=== PATIENT | male | born 1975 | race Caucasian/White ===

== ENCOUNTER 2019-10-06 06:12 | Emergency (ER) | payer BC ==
--- NOTE | 2019-10-06 07:44 | EDM.PDOC ---
ED HPI GENERAL MEDICAL PROBLEM - General Chief Complaint: Lower Extremity Injury/Pain Stated Complaint: RIGHT KNEE PAIN Time Seen by Provider: 10/06/19 07:05 - History of Present Illness INITIAL COMMENTS - FREE TEXT/NARRATIVE: HPI 43-year-old obese male presents with 2 weeks of gradually progressive right anterior knee pain that begins immediately proximal to his patella and radiates/ tracks along the length of his patella inferiorly to the knee, notes that he began treadmill exercise 2 weeks ago an effort to improve his weight, denies trauma, fevers, chills, notes brief periods of warmth/redness that is responsive to ice. No history of gout. No history of repetitive kneeling. No recent travel or exposure to areas where Lyme disease is endemic, no new sexual partners, no genital complaints. ROS with no recent constitutional symptoms. Triage note: AOx4, states pain to right knee since , denies any trauma. Advil - 3am Exam HR 92, RR 18, BP 139/89, T 36.4C, SaO2 97% on room air. Gen: Pleasant, nontoxic-appearing, resting comfortably. HEENT: NC, AT, PEERL, EOMI. Resp: Unlabored respirations with a normal work of breathing. Card: Extremities warm and well perfused. GI: Non-distended. : Deferred MSK: right knee with full functional range of motion, no tenderness to palpation over the patella, fibular head, or joint line. No MCL or LCL tenderness to palpation, negative posterior drawer test. Mild tenderness palpation over the quadriceps and patellar tendon, both tendons intact on knee extension. Mild swelling and tenderness over the prepatellar and infrapatellar bursa, no ecchymosis, skin normal color and warmth, no crepitus. Calf without visible or palpable trauma, muscle compartments soft and non-tender to palpation. Gait - Patient able to take four steps with a no minimally antalgic gait. Neuro: alert and oriented 3, no facial asymmetry, vision and hearing WNL. Heme/Lymph: Deferred Skin: Normal color with no visible lesions (other than noted above). Psych: Mood and affect appropriate. MDM Previous chart, nursing note, and vitals reviewed. A: 43-year-old obese male presents with 2 weeks of gradually progressive right anterior knee pain that begins immediately proximal to his patella and radiates/ tracks along the length of his patella inferiorly to the knee, notes that he began treadmill exercise 2 weeks ago an effort to improve his weight, denies trauma, fevers, chills, notes brief periods of warmth/redness that is responsive to ice. DDx & Evaluation: history and exam C/W prepatellar bursitis, no clear evidence of infection, however given history of warmth and tenderness and lack of good follow-up Bactrim DS BID modifications 14 days was prescribed. Patient instructed to take ibuprofen and acetaminophen for pain control, reduce provoking physical activity, follow up with PCP as possible, and return to care as needed. The time of the patients evaluation there is no evidence of joint involvement (absence of effusion, absence of warmth or joint tenderness, and no joint pain on ambulation). CMS intact. No features to warrant x-ray the present time. Impression: right knee pain. right knee Pain Score (Numeric/FACES): 6 - Related Data Allergies Allergy/AdvReac Type Severity Reaction Status Date / Time No Known Allergies Allergy Verified 10/06/19 06:34 Home Meds: Home Meds Sulfamethoxazole/Trimethoprim [Bactrim Ds Tablet] 2 each PO BID 14 Days #56 tablet 10/06/19 [Rx] Past Medical History HEENT History: Reports: None Cardiovascular History: Reports: None Respiratory History: Reports: None Gastrointestinal History: Reports: None Genitourinary History: Reports: None Musculoskeletal History: Reports: None Neurological History: Reports: None Psychiatric History: Reports: None Endocrine/Metabolic History: Reports: None Insulin Pump Model and Manager Ob: None Hematologic History: Reports: None Immunologic History: Reports: None Oncologic (Cancer) History: Reports: None Dermatologic History: Reports: None - Infectious Disease History Infectious Disease History: Reports: None - Past Surgical History Head Surgeries/Procedures: Reports: None HEENT Surgical History: Reports: Tonsillectomy Male Surgical History: Reports: Vasectomy Musculoskeletal Surgical History: Reports: Other (See Below) Other Musculoskeletal Surgeries/Procedures:: Knee Surgery Social & Family History - Family History Family Medical History: Noncontributory - Tobacco Use Smoking Status *Q: Former Smoker Used Tobacco, but Quit: No - Caffeine Use Caffeine Use: Reports: Coffee - Recreational Drug Use Recreational Drug Use: No Review of Systems - Review of Systems Review Of Systems: See Below ED EXAM, GENERAL - Physical Exam Exam: See Below Course - Vital Signs Last Recorded V/S: Last Vital Signs Temp 36.4 C 10/06/19 06:35 Pulse 92 10/06/19 06:35 Resp 18 10/06/19 06:35 BP 139/89 10/06/19 06:35 Pulse Ox 97 10/06/19 06:35 Departure - Departure Time of Disposition: 07:42 Disposition: Home, Self-Care 01 Clinical Impression: Knee pain - Discharge Information Prescriptions: Sulfamethoxazole/Trimethoprim [Bactrim Ds Tablet] 2 each PO BID 14 Days #56 tablet Referrals: PCP,None [Primary Care Provider] - Additional Instructions: You were in seen in the [facility] Emergency Department for evaluation of right knee pain. At time of your evaluation your believed to have inflammation of your prepatellar and infrapatellar bursa, this is called bursitis. While this is likely not due to infection, due to a small concern that you may have an infection an antibiotic ( Bactrim) has been prescribed. You may take ibuprofen and acetaminophen as directed below for treatment of pain. Please reduce your level of treadmill exercise to that tolerated by mild discomfort. Please read and follow all of the instructions below. Please follow up with your primary care physician 3-4 days if your symptoms are not improving. When calling for follow-up care, please make the office aware that this follow-up is from your recent emergency room visit. If for any reason you are refused follow-up, please contact the [facility] Emergency Department at and asked to speak to the emergency department charge nurse. Your care today was limited to identifying and treating emergent medical problems only. Many people have subtle differences in their test results that require follow up with their outpatient physician(s) to correctly determine if this represents a normal variation or concerning abnormality with respect to your specific health. The care given to you today was limited to identifying and treating emergent medical problems - you need to request a copy of all of your medical records from today's visit and follow up with your outpatient physician(s) to review both today's visit and your overall health. If you have any new symptoms or if you are at all concerned about your health please return immediately to the emergency department. You make take over the counter Acetaminophen (Tylenol) and Ibuprofen (Motrin or Aleve) as directed below for relief of pain. Take 600 mg of ibuprofen (three 200 mg tablets) with a glass of water every 6-8 hours as needed for pain or fever. Do not take if you have ulcers, GI bleeding, are , or are allergic to ibuprofen. Take 1,000 mg of acetaminophen (two 500 mg tablets) with a glass of water every 6-8 hours as needed for pain. Do not take if you are allergic to acetaminophen. If you have liver disease, please reduce your dose to a maximum of 2,000 mg per day. You can take these medications at the same time or on separate schedules. Do not take for more than 10 days. Do not take with alcohol or other acetaminophen containing medications. This medication may cause a mildly upset stomach, if so take it with a small snack. Stop taking it if you have persistent abdominal pain, heartburn, or any stomach pain. Do not take this medication if you have known ulcers. Please read the warnings at the end of this document regarding these medications. IBUPROFEN WARNING: This drug may infrequently cause serious (rarely fatal) bleeding from the stomach or intestines. Also, related drugs rarely have caused blood clots to form, resulting in heart attacks and strokes. This medication might also rarely cause similar problems. Talk to your doctor or pharmacist about the benefits and risks of treatment, as well as other possible medication choices. If you notice any of the following rare but very serious side effects, stop taking ibuprofen and seek immediate medical attention: black stools, persistent stomach/abdominal pain, vomit that looks like coffee grounds, chest pain, weakness on one side of the body, sudden vision changes, slurred speech. IBUPROFEN SIDE EFFECTS: Upset stomach, nausea, vomiting, heartburn, headache, diarrhea, constipation, drowsiness, and dizziness may occur. If any of these effects persist or worsen, notify your doctor or pharmacist promptly. If your doctor has directed you to use this medication, remember that he or she has judged that the benefit to you is greater than the risk of side effects. Many people using this medication do not have serious side effects. Tell your doctor immediately if any of these serious side effects occur: stomach pain, swelling of the hands or feet, sudden or unexplained weight gain, ringing in the ears ( tinnitus). Tell your doctor immediately if any of these unlikely but serious side effects occur: vision changes, rapid or pounding heartbeat, easy bruising or bleeding, difficult/painful swallowing. Tell your doctor immediately if any of these highly unlikely but very serious side effects occur: change in amount of urine, severe headache, very stiff neck, mental/mood changes, persistent sore throat or fever. This drug may rarely cause serious (possibly fatal) liver disease. If you notice any of the following highly unlikely but very serious side effects, stop taking ibuprofen and consult your doctor or pharmacist immediately: yellowing eyes and skin, dark urine, unusual/extreme tiredness. An allergic reaction to this drug is unlikely, but seek immediate medical attention if it occurs. Symptoms of an allergic reaction include: rash, itching/ swelling (especially of the face/tongue/throat), severe dizziness, trouble breathing. This is not a complete list of possible side effects. ACETAMINOPHEN SIDE EFFECTS: This drug usually has no side effects. If you do not have liver problems, the maximum dose of acetaminophen for adults is 4 grams per day (4000 milligrams). Taking more than the maximum daily amount may cause serious (possibly fatal) liver damage. Get medical help right away if you have any of the following symptoms of liver damage: persistent nausea/vomiting, extreme tiredness, stomach/abdominal pain, yellowing eyes/skin, dark urine. If you have liver problems, consult your doctor or pharmacist for a safe dosage of this medication. A very serious allergic reaction to this drug is rare. However , get medical help right away if you notice any symptoms of a serious allergic reaction, including: rash, itching/swelling (especially of the face/tongue/ throat), severe dizziness, trouble breathing. This is not a complete list of possible side effects. If you notice other effects not listed above, contact your doctor or pharmacist. DRUG INTERACTIONS: Your healthcare professionals (e.g., doctor or pharmacist) may already be aware of any possible drug interactions and may be monitoring you for it. Do not start, stop or change the dosage of any medicine before checking with them first. This drug should not be used with the following medications because very serious interactions may occur: cidofovir, ketorolac. If you are currently using any of these medications listed above, tell your doctor or pharmacist before starting ibuprofen. Before using this medication, tell your doctor or pharmacist of all prescription and nonprescription/herbal products you may use, especially of: anti-platelet drugs (e.g., cilostazol, clopidogrel), oral bisphosphonates (e.g., alendronate), other medications for arthritis (e.g., aspirin, methotrexate), "blood thinners" (e.g., enoxaparin, heparin, warfarin), corticosteroids (e.g., prednisone), cyclosporine, desmopressin, high blood pressure drugs (including BRENDAN inhibitors such as captopril, angiotensin II receptor antagonists such as losartan, and beta- blockers such as metoprolol), lithium, pemetrexed, "water pills" (diuretics such as furosemide, hydrochlorothiazide, triamterene). Check all prescription and nonprescription medicine labels carefully for other pain/fever drugs ( NSAIDs such as aspirin, celecoxib, naproxen). These drugs are similar to ibuprofen, so taking one of these drugs while also taking ibuprofen may increase your risk of side effects. Consult your doctor or pharmacist for more details. However, if your doctor has prescribed low doses of aspirin to prevent heart attack or stroke (usually at dosages of 81-325 milligrams a day), you should continue to take the aspirin. Daily use of ibuprofen may decrease aspirin 's ability to prevent heart attack/stroke. Talk to your doctor about using a different medication (e.g., acetaminophen) to treat pain/fever. If you must take ibuprofen, talk to your doctor about possibly taking immediate-release aspirin (not enteric-coated) while also taking the ibuprofen dose apart from your aspirin dose. Do not increase your daily dose of aspirin or change the way you take aspirin/other medications without your doctor's approval. This document does not contain all possible interactions. Therefore, before using this product, tell your doctor or pharmacist of all the products you use. Keep a list of all your medications with you, and share the list with your doctor and pharmacist. Sulfamethoxazole/Trimethoprim (Brand Name: Bactrim) Please take this medication as prescribed. Please take the medication for the full duration of the prescription. If you feel you are experiencing a side effect, please call your physician or the emergency department. BACTRIM - SIDE EFFECTS: Nausea, vomiting, diarrhea, loss of appetite, or headache may occur. If any of these effects persist or worsen, notify your doctor or pharmacist promptly. Remember that your doctor has prescribed this medication because he or she has judged that the benefit to you is greater than the risk of side effects. Many people using this medication do not have serious side effects. Tell your doctor right away if you have any serious side effects, including: pain/redness/swelling at the injection site, sun sensitivity (sunburn ), muscle weakness, mental/mood changes (e.g., depression, hallucinations), crystals in the urine, painful urination, change in the amount of urine, lump/ growth/swelling in the front of the neck (goiter), signs of low blood sugar ( e.g., shaking, dizziness, blurred vision, unusual hunger). Get medical help right away if any of these rare but very serious side effects occur: confusion, persistent/severe headache, neck stiffness, seizures. This medication may rarely cause serious (possibly fatal) allergic reactions and other side effects such as a severe peeling skin rash (e.g., Dunlap- syndrome), blood disorders (e.g., agranulocytosis, aplastic anemia), liver damage, or lung injury. Get medical help right away if you notice any of the following: skin rash/blisters, itching/swelling (especially of the face/tongue/throat), severe dizziness, persistent cough, trouble breathing, signs of a new infection (e.g., persistent sore throat, fever), pale skin, easy bleeding/bruising, yellowing eyes/skin, persistent nausea/vomiting, unusual tiredness, dark urine, stomach/ abdominal pain, joint pain. This medication may rarely cause a severe intestinal condition (Clostridium difficile-associated diarrhea) due to a type of resistant bacteria. This condition may occur while receiving therapy or even weeks to months after treatment has stopped. Do not use anti-diarrhea products or narcotic pain medications if you have the following symptoms because these products may make them worse. Tell your doctor immediately if you develop: persistent diarrhea, abdominal or stomach pain/cramping, blood/mucus in your stool. Use of this medication for prolonged or repeated periods may result in oral thrush or a new vaginal yeast infection. Contact your doctor if you notice white patches in your mouth, a change in vaginal discharge, or other new symptoms. This is not a complete list of possible side effects. BACTRIM - PRECAUTIONS: Before using sulfamethoxazole with trimethoprim, tell your doctor or pharmacist if you are allergic to it; or to sulfa medications; or if you have any other allergies. This medication should not be used if you have certain medical conditions. Before using this medicine, consult your doctor or pharmacist if you have: a certain blood disorder (anemia due to folate vitamin deficiency), a certain metabolic disorder (porphyria). Before using this medication, tell your doctor or pharmacist your medical history, especially of: kidney disease, liver disease, severe allergies, asthma, diabetes , other blood disorders, decreased bone marrow function (bone marrow suppression ), a certain other metabolic disorder (G6PD deficiency), conditions that put you at risk for folate vitamin deficiency (e.g., chronic alcohol use, anti- seizure medication use, intestinal absorption problems, malnutrition). This medication may make you more sensitive to the sun. Avoid prolonged sun exposure , tanning booths, and sunlamps. Use a sunscreen and wear protective clothing when outdoors. This medication should not be used in infants younger than 2 months. Kidney function declines as you grow older. This medication is removed by the kidneys. Therefore, older adults may be more sensitive to the side effects of this drug, especially skin reactions, blood disorders, easy bleeding/ bruising, and a high potassium blood level. Patients with AIDS may be more sensitive to the side effects of the drug, especially skin reactions, fever, and blood disorders. During , this medication should be used only when clearly needed. This medication should not be used near the expected delivery date because of possible harm to the unborn baby. Discuss the risks and benefits with your doctor. This drug passes into breast milk. While there have been no reports of harm to healthy infants, this drug may have undesirable effects on infants who are ill or premature or have certain disorders (jaundice , high blood levels of bilirubin, G6PD deficiency). Therefore, breast-feeding is not recommended in infants with these conditions. Consult your doctor before breast-feeding any infant. BACTRIM - DRUG INTERACTIONS: Drug interactions may change how your medications work or increase your risk for serious side effects. This document does not contain all possible drug interactions. Keep a list of all the products you use (including prescription/nonprescription drugs and herbal products) and share it with your doctor and pharmacist. Do not start, stop, or change the dosage of any medicines without your doctor's approval. Some products that may interact with this drug include: certain anti-diabetic medications (sulfonylureas such as glipizide, glyburide, tolbutamide), cyclosporine, digoxin, dofetilide, hydantoins (e.g., phenytoin), live bacterial vaccines, methenamine, methotrexate , PABA taken by mouth, procainamide, pyrimethamine, warfarin. This medication may decrease the effectiveness of combination-type control pills. This can result in . Ask your doctor or pharmacist for details. Discuss whether you should use additional reliable control methods while using this medication. This product can affect the results of certain lab tests. Make sure laboratory personnel and all your doctors know you use this drug. Prescriptions: If you are uninsured or have financial difficulties with filling your prescription(s), you may consider using a free pharmacy discount service such as [employer] ([employer]) or [employer] ([employer]). These services allow you to search for a medication on your phone (or computer) and obtain a coupon that usually has a significant discount from the list barron at a pharmacy. Your physician as well as [facility] does not have a financial relationship with either of these services. You may also wish to speak with your physician to determine if lower cost prescriptions are possible. Obtaining primary care: 1. [facility] provides pediatrics (children), family medicine (children, adults, and some obstetrical care), and internal medicine (adults). Further specialty care is also available. Same day appointments are available. They may be contacted at [phone] and are open Sunday through Sunday 8 AM to 5 PM. The [facility] are located at [facility], [address] [place] [id number]. 2. [facility] offers family medicine, internal medicine, womens health, and further specialty care. [facility] may be contacted at [phone]. [facility] is located at [place], [address]. 3. If you have health insurance, please also contact your insurer for a list of accepting providers under your policy, you may contact these providers for further health care. Occupational health: Work related injuries may consider following up with [facility], . Occupational health services are located at [address] [place] [address] and are open Sunday through Sunday from 7: 30 am to 5:00 pm. Obstetrical and Gynecological Care: [facility], , Sunday through Sunday 8 AM to 5 PM. [address] [address]. Eyecare: If you have an eye injury you should follow up with your campground cleaning attendant or with [facility], at [phone] or [phone] , they are located at [address] [place] [address]. Sepsis Event Note - Evaluation Sepsis Screening Result: No Definite Risk - Focused Exam Vital Signs: Vital Signs Temp Pulse Resp BP Pulse Ox 10/06/19 06:35 36.4 C 92 18 139/89 97 Date Exam was Performed: 10/06/19 Time Exam was Performed: 07:42
== END 2019-10-06 07:57 | disposition home or self-care (01) ==
LOC: MW.ED 06:12
DX: M25.561 Pain in right knee (principal); Z87.891 Personal history of nicotine dependence
CPT/HCPCS: 99283

== ENCOUNTER 2023-11-13 00:34 | Emergency (ER) | payer BC ==
[2023-11-13] MEDS: amLODIPine 5 MG Tab PO ONE (01:02)
== END 2023-11-13 02:00 | disposition home or self-care (01) ==
LOC: MW.ED 00:34
DX: I10 Essential (primary) hypertension (principal); Z75.8 Other problems related to medical facilities and other health care; Z79.899 Other long term (current) drug therapy
CPT/HCPCS: 99283; A9270